=== PATIENT | female | born 1985 | race African-American/Black ===

== ENCOUNTER 2018-09-25 15:05 | Emergency (ER) | payer SELFPAY ==
[~2018-09-25] VITALS: Ht 152.4 cm; Wt 59.0 kg
[2018-09-25 15:46] VITALS: BP 117/79
[2018-09-25] MEDS ORDERED: KETOROLAC TROMETH 60MG/2ML VIAL IM ONE (16:00)
== END 2018-09-25 16:58 | disposition home or self-care (01) ==
LOC: ER 15:12
DX: S39.012A Strain of muscle, fascia and tendon of lower back, initial encounter (principal); Z88.1 Allergy status to other antibiotic agents; V43.52XA Car driver injured in collision with other type car in traffic accident, initial encounter; Y93.89 Activity, other specified; Y99.8 Other external cause status; Y92.410 Unspecified street and highway as the place of occurrence of the external cause
CPT/HCPCS: 72100; 81025; 96372; 99284; J1885

== ENCOUNTER 2022-06-14 09:00 | Emergency (ER) | payer SELFPAY ==
[~2022-06-14] VITALS: Ht 152.4 cm; Wt 70.0 kg
[2022-06-14 09:36] VITALS: BP 112/77
[2022-06-14] MEDS ORDERED: SUMAtriptan SUCCINATE 6 MG/0.5 ML VL SC ONE (10:00)
[2022-06-14] MEDS ORDERED: ONDANSETRON ODT 4 MG TAB PO ONE (10:00)
[2022-06-14] MEDS ORDERED: SUMA50TA2 PO (10:30)
[2022-06-14] MEDS ORDERED: ONDA-144 PO (10:30)
== END 2022-06-14 10:48 | disposition home or self-care (01) ==
LOC: ER 09:00
DX: G43.909 Migraine, unspecified, not intractable, without status migrainosus (principal)
CPT/HCPCS: 96372; 99283; J3030; Q0162